=== PATIENT | male | born 1980 | race Caucasian/White ===

== ENCOUNTER 2017-04-16 06:10 | Day surgery (SDC) | payer OTHER ==
[~2017-04-16] VITALS: Ht 189.2 cm; Wt 93.2 kg
[2017-04-16 06:39] VITALS: BP 153/84; PULSE 77; RESP 20; TEMP 98; O2SAT 99
[2017-04-16] MEDS ORDERED: FLUT50SP EACH NARE (06:44)
[2017-04-16] MEDS ORDERED: CETI10 PO (06:44)
[2017-04-16] MEDS ORDERED: PANT40TA3 PO (06:44)
[2017-04-16] MEDS ORDERED: [UNRECOGNIZED DRUG - REMARK] IV (06:44)
[2017-04-16] MEDS ORDERED: CHLORHEXIDINE GLUCONATE 2 % 1 PACK (2 CLOTHS) TOPICAL SCH (07:00)
[2017-04-16] MEDS ORDERED: SODIUM CHLORIDE 0.9% 1000 ML IV SCH (07:00)
[2017-04-16] MEDS ORDERED: ceFAZolin 2 GM PREMIX 50 ML - implanted port/tunneled catheter insertion IV SCH (07:00)
[2017-04-16] MEDS ORDERED: POVIDONE IODINE 5% (ANTISEPSIS KIT) 4 APPLICATIONS EACH NARE SCH (07:00)
[2017-04-16] MEDS ORDERED: VANCOMYCIN 1000 MG/NS 250 ML - implanted port/tunneled catheter IV SCH ×2 (07:00)
[2017-04-16] MEDS ORDERED: MIDAZOLAM HCL 5 MG/5 ML VIAL ONE (08:16)
[2017-04-16 09:15] VITALS: BP 123/74; PULSE 74; RESP 17; TEMP 98.6; O2SAT 97
[2017-04-16 09:30] VITALS: BP 128/71; PULSE 76; RESP 16; O2SAT 98
[2017-04-16 10:00] VITALS: BP 123/67; PULSE 81; RESP 17; O2SAT 97
[2017-04-16 10:30] VITALS: BP 124/68; PULSE 79; RESP 18; O2SAT 98
--- NOTE | 2017-04-16 11:04 | PD.RAD ---
Post Procedure Progress Note Pre Procedure Diagnosis: (1) Colorectal cancer Post Procedure Diagnosis: (1) Colorectal cancer Procedure Date: Apr 16, 2017 Supervising Radiologist: Kenny Witt Proceduralist/Assist: Micheline Chaudhry RT(R)(CV) Estimated blood loss: 10 ml Anesthesia: Local, Conscious Sedation Plan of Activity Patient to Unit: ROPU Patient Condition: Good See PACS Report for procedural detail/treatment Central Venous Access Device Procedure 1 Right Internal Jugular Infusaport Placement single lumen Japanese: 8 Kenny Witt MD Apr 16, 2017 11:04
[2017-04-16] MEDS ORDERED: SODIUM CHLORIDE 0.9% FLUSH 10 ML FLUSH IVF PRN (11:15)
[2017-04-16 11:30] VITALS: BP 125/62; PULSE 70; RESP 17; O2SAT 98
--- NOTE | 2017-04-16 13:47 | RADRPT ---
EXAM DATE/TIME: 04/16/2017 08:05 [facility] COMPARISON: No previous studies available for comparison. INDICATIONS : Patient with a history of colon adenocarcinoma, needs chemotherapy. MEDICAL HISTORY : Colon cancer Anemia GERD Plantar fascitis Retinal tear SURGICAL HISTORY : Retinal laser treatment Colonoscopy Upper endoscopy ENCOUNTER: Initial ACUITY: 1 week PAIN SCORE: 0/10 FLUORO TIME: 0.7 minutes IMAGE SERIES: 1 SEDATION TIME: 25 minutes ACCESS: Right internal jugular vein SEDATION: 1.) 3.5 mg midazolam (Versed) IV 2.) 200 mcg fentanyl (Sublimaze) IV Prophylactic antibiotics were administered with appropriate pre-procedure timing. Vancomycin within 2 hours of procedure, Ancef (or alternative) within 1 hour of procedure. DEVICE: 1. 8 [place] single lumen Bard Power Port PROCEDURE : 1. Continuous pulse oximetry and EKG monitoring. 2. Intravenous conscious sedation. 3. Ultrasound guidance for venous access. 4. Fluoroscopic guided implantable central venous port placement. The patient was placed supine. The neck was prepped in sterile fashion. Full sterile technique was u sed, including cap, mask, sterile gloves and gown, and a large sterile sheet. Hand hygiene and 2% ch lorhexidine Betadine was utilized per protocol for cutaneous antisepsis with appropriate dry time for site. Sterile gel and sterile probe cover were utilized for ultrasound guidance. The skin and sub cutaneous tissues were infiltrated with local anesthetic solution. Under direct ultrasound guidance, central venous access was accomplished in the targeted vessel. The ultrasound images depicting access guidance were stored and saved to PACS for permanent record. A s ubcutaneous pocket was created using blunt dissection. The port was introduced to the pocket. The c atheter tubing was fed through a subcutaneous tunnel to the venotomy site. The catheter tubing was c ut to a suitable length and then was introduced through a valved Peel-Away sheath and positioned with catheter tubing tip at the cavo-atrial junction level. The pocket incision was closed with subcutic ular Vicryl suture. Steri-Strips were applied. The port was flushed and locked with heparin solutio n per protocol. Sterile dressing was applied to the site. The patient tolerated the procedure well. Conscious sedation was performed with the prescribed dosages and duration as above in the presence of an independent trained radiology nurse to assist in the monitoring of the patient. EKG and oximetry remained stable throughout the procedure. The patient tolerated the procedure well and there were no complications. The patient was sent to post anesthesia recovery in stable condition. CONCLUSION: Uncomplicated ultrasound and fluoroscopic guided implanted central venous port catheter placement as described in detail above. An 8 [place]an Power port was placed. Kenny Witt MD on April 16, 2017 at 13:44 Board Certified Radiologist. This report was verified electronically.
== END 2017-04-16 11:30 | disposition home or self-care (01) ==
LOC: HROP 06:10 → HRIP 06:24 → HROP 11:30
PROVIDERS: ATTEND Internal Medicine
DX: C18.9 Malignant neoplasm of colon, unspecified (principal); K21.9 Gastro-esophageal reflux disease without esophagitis; D64.9 Anemia, unspecified; M72.2 Plantar fascial fibromatosis
CPT/HCPCS: 36561; 76937; 77001; 99152; 99153; C1788; J0690; J1642; J2250; J3010; J3370; J7030; J7050

== ENCOUNTER 2017-07-17 12:29 | Observation (INO) | payer OTHER ==
[~2017-07-17 12:29] MED LIST: CETI10 PO; FLUT50SP EACH NARE; PANT40TA3 PO; [UNRECOGNIZED DRUG - REMARK] IV
[2017-07-17 15:46] VITALS: BP 112/72; PULSE 77; RESP 16; TEMP 98.6; O2SAT 98
[2017-07-17] MEDS ORDERED: MULT-65 PO (15:57)
[2017-07-17] MEDS ORDERED: OCTREOTIDE INJ 100 MCG/ML VIAL IV PUSH ONE (16:15)
[2017-07-17] MEDS ORDERED: ONDANSETRON HCL 4 MG/2 ML VIAL IV PUSH ONE (16:15)
[2017-07-17] MEDS ORDERED: ONDANSETRON HCL 4 MG/2 ML VIAL IV PUSH PRN (16:15)
[2017-07-17] MEDS ORDERED: LOPERAMIDE HCL 2 MG CAP PO PRN (16:30)
[2017-07-17] MEDS ORDERED: LORazepam 0.5 MG TAB PO PRN (16:45)
--- NOTE | 2017-07-17 17:08 | RADRPT ---
EXAM DATE/TIME: 07/17/2017 16:41 [facility] COMPARISON: No previous studies available for comparison. INDICATIONS : Diarrhea. MEDICAL HISTORY : None. SURGICAL HISTORY : Colon removal. ENCOUNTER: Initial ACUITY: 1 day PAIN SCORE: 0/10 LOCATION: Bilateral abdomen. FINDINGS: Supine view of the abdomen was performed. The abdominal bowel gas pattern is normal. No abnormal ma sses, calcifications, or organomegaly is seen. The visualized lower lungs are clear. The osseous str uctures are unremarkable. CONCLUSION: No dilated loops of small or large bowel. Moi Collazo MD on July 17, 2017 at 17:06 Board Certified Radiologist. This report was verified electronically.
[2017-07-17] MEDS: PANTOPRAZOLE SOD 40 MG DELAYED RELEASE TAB PO SCH (19:24)
[2017-07-17 20:08] VITALS: PULSE 79
[2017-07-17] MEDS: VANCOMYCIN 500 MG VIAL (FOR ORAL USE ONLY) PO SCH (21:12)
[2017-07-17 21:21] VITALS: BP 133/79; PULSE 79; RESP 18; TEMP 98.3; O2SAT 98
[2017-07-17] MEDS ORDERED: ACETAMINOPHEN 325 MG TAB PO PRN (22:30)
[2017-07-18] VITALS (7 sets, daily range): BP systolic 105–124; BP diastolic 60–74; PULSE 65–82; RESP 18; TEMP 97.9–98.4; O2SAT 68–99
[2017-07-18 05:02] LABS: AUTOMATED NEUTROPHIL # 3.5 TH/MM3 (1.8-7.7); BASOPHIL % 0.4 % (0.0-2.0); EOSINOPHIL # 0.7 TH/MM3 (0-0.4); EOSINOPHIL % 11.6 % (0.0-4.0); HEMATOCRIT 38.6 % (39.0-51.0); HEMOGLOBIN 13.2 GM/DL (13.0-17.0); LYMPH % 21.4 % (9.0-44.0); LYMPHOCYTE # 1.4 TH/MM3 (1.0-4.8); MEAN CELL VOLUME 93.5 FL (80.0-100.0); MEAN CORPUSCULAR HGB CONC 34.2 % (32.0-36.0); MONO % 11.1 % (0.0-8.0); MONOCYTE # 0.7 TH/MM3 (0-0.9); NEUT % 55.5 % (16.0-70.0); PLATELET COUNT 128 TH/MM3 (150-450); RED BLOOD COUNT 4.12 MIL/MM3 (4.50-5.90); RED CELL DISTRIBUTION WIDTH 23.6 % (11.6-17.2); WHITE BLOOD COUNT 6.4 TH/MM3 (4.0-11.0)
[2017-07-18 06:02] LABS: ALBUMIN 3.3 GM/DL (3.4-5.0); ALKALINE PHOSPHATASE 56 U/L (45-117); ALT (GPT) 33 U/L (12-78); AST (GOT) 40 U/L (15-37); BICARBONATE 23.1 MEQ/L (21.0-32.0); BLOOD UREA NITROGEN 17 MG/DL (7-18); CALCIUM 8.5 MG/DL (8.5-10.1); CHLORIDE 111 MEQ/L (98-107); CREATININE 0.94 MG/DL (0.60-1.30); GLOMERULAR FILTRATION RATE 89 ML/MIN (>89); GLUCOSE,RANDOM 101 MG/DL (74-106); SODIUM (NA) 141 MEQ/L (136-145); TOTAL BILIRUBIN ADULT 0.9 MG/DL (0.2-1.0); TOTAL PROTEIN 7.3 GM/DL (6.4-8.2)
--- NOTE | 2017-07-18 07:56 | HHI.DCPOC ---
Discharge Care Plan Goals to Promote Your Health * To prevent worsening of your condition and complications * To maintain your health at the optimal level Directions to Meet Your Goals Take your medications as prescribed Follow your dietary instruction Follow activity as directed Keep your appointments as scheduled Take your immunizations and boosters as scheduled If your symptoms worsen call your PCP, if no PCP go to Urgent Care Center or Emergency Room Smoking is Dangerous to Your Health. Avoid second hand smoke Call the 24-hour hour crisis hotline for domestic abuse at Jonah Luna MD Jul 18, 2017 07:56
--- NOTE | 2017-07-18 07:57 | HHI.DS ---
Discharge Summary Admission Date Jul 17, 2017 at 14:39 Discharge Date: Jul 18, 2017 Admitting Diagnosis Stage III Colon Cancer s/p resection getting adjuvant Xeloda and Oxaliplatin admitted with diarrhea/dehydration and hypotension also with CASH CASH resolved Symptomatically better VSS C.diff positive being discharged home with 2 weeks of oral Vancomycin f/u labs in 1 week Clinic appt in 2 weeks advised to call us if any exacerbation of symptoms, fever or any other issues CBC/BMP: 07/18/17 0446 07/18/17 0446 Significant Findings Laboratory Tests Test 07/17/17 18:00 07/18/17 04:46 Stool C. difficile Toxin (PCR) POSITIVE (NEGATIVE) Red Blood Count 4.12 MIL/MM3 (4.50-5.90) Hematocrit 38.6 % (39.0-51.0) Red Cell Distribution Width 23.6 % (11.6-17.2) Platelet Count 128 TH/MM3 (150-450) Monocytes (%) (Auto) 11.1 % (0.0-8.0) Eosinophils (%) (Auto) 11.6 % (0.0-4.0) Eosinophils # (Auto) 0.7 TH/MM3 (0-0.4) Albumin 3.3 GM/DL (3.4-5.0) Aspartate Amino Transf (AST/SGOT) 40 U/L (15-37) Chloride Level 111 MEQ/L (98-107) Jonah Luna MD Jul 18, 2017 07:57
[2017-07-18] MEDS ORDERED: SODIUM CHLORID 0.9% 500 ML INJ 500 ML IV ONE (08:00)
--- NOTE | 2017-07-18 08:04 | PD.ONC.PN ---
Subjective Subjective Remarks feels better today diarrhea subsiding continue oral vancomycin and IV hydration if feels better today, will d/c home Objective Data Date Time Temp Pulse Resp B/P (MAP) Pulse Ox O2 Delivery O2 Flow Rate FiO2 07/18/17 04:41 97.9 75 18 105/64 (78) 98 07/18/17 04:11 65 07/18/17 01:20 16 07/18/17 00:24 73 07/18/17 00:18 98.0 79 18 109/70 (83) 99 07/17/17 21:21 98.3 79 18 133/79 (97) 98 07/17/17 20:08 79 07/17/17 15:46 98.6 77 16 112/72 (85) 98 Result Diagram: 07/18/17 0446 07/18/17 0446 Laboratory Results Laboratory Tests Test 07/17/17 18:00 07/18/17 04:46 Stool C. difficile Toxin (PCR) POSITIVE Stl C. difficile Toxin Epiderm 027 PRESUMPTIVE NEGATIVE White Blood Count 6.4 TH/MM3 Red Blood Count 4.12 MIL/MM3 Hemoglobin 13.2 GM/DL Hematocrit 38.6 % Mean Corpuscular Volume 93.5 FL Mean Corpuscular Hemoglobin 32.0 PG Mean Corpuscular Hemoglobin Concent 34.2 % Red Cell Distribution Width 23.6 % Platelet Count 128 TH/MM3 Mean Platelet Volume 8.0 FL Neutrophils (%) (Auto) 55.5 % Lymphocytes (%) (Auto) 21.4 % Monocytes (%) (Auto) 11.1 % Eosinophils (%) (Auto) 11.6 % Basophils (%) (Auto) 0.4 % Neutrophils # (Auto) 3.5 TH/MM3 Lymphocytes # (Auto) 1.4 TH/MM3 Monocytes # (Auto) 0.7 TH/MM3 Eosinophils # (Auto) 0.7 TH/MM3 Basophils # (Auto) 0.0 TH/MM3 CBC Comment DIFF FINAL Differential Comment Blood Urea Nitrogen 17 MG/DL Creatinine 0.94 MG/DL Random Glucose 101 MG/DL Total Protein 7.3 GM/DL Albumin 3.3 GM/DL Calcium Level 8.5 MG/DL Alkaline Phosphatase 56 U/L Aspartate Amino Transf (AST/SGOT) 40 U/L Alanine Aminotransferase (ALT/SGPT) 33 U/L Total Bilirubin 0.9 MG/DL Sodium Level 141 MEQ/L Potassium Level 3.7 MEQ/L Chloride Level 111 MEQ/L Carbon Dioxide Level 23.1 MEQ/L Anion Gap 7 MEQ/L Estimat Glomerular Filtration Rate 89 ML/MIN Culture Results Microbiology Date/Time Source Procedure Growth Status 07/17/17 18:34 Blood Line Aerobic Blood Culture Pending Received 07/17/17 18:34 Blood Line Anaerobic Blood Culture Pending Received 07/17/17 17:25 Blood Line Aerobic Blood Culture Pending Received 07/17/17 17:25 Blood Line Anaerobic Blood Culture Pending Received Administered Medications Medications (Trade) Dose Ordered Sig/Renae Route PRN Reason Start Time Stop Time Status Last Admin Dose Admin Pantoprazole Sodium (Protonix) 40 mg DAILY PO 07/17/17 18:55 07/17/17 19:24 Vancomycin HCl (VANCOMYCIN for oral use only) 125 mg QID PO 07/17/17 21:00 07/17/17 21:12 Acetaminophen (Tylenol) 650 mg Q6HR PRN PO PAIN SCALE 1 TO 2 07/17/17 22:30 07/18/17 00:21 Objective Remarks GENERAL: nad SKIN: Warm and dry. HEAD: Normocephalic. EYES: No scleral icterus. No injection or drainage. NECK: Supple, trachea midline. No JVD or lymphadenopathy. LYMPHATIC: No adenopathy. CARDIOVASCULAR: Regular rate and rhythm without murmurs. RESPIRATORY: Breath sounds equal bilaterally. No accessory muscle use. GASTROINTESTINAL: Abdomen soft, non-tender, nondistended. EXTREMITIES: No cyanosis, or edema. MUSCULOSKELETAL: Adequate muscle tone. NEUROLOGICAL: No obvious focal deficit. Awake, alert, and oriented x3. PSYCHIATRIC: Appropriate mood and affect; insight and judgment normal. Assessment/Plan Problem List: (1) Hypotension ICD Codes: I95.9 - Hypotension, unspecified (2) Dehydration ICD Codes: E86.0 - Dehydration (3) C. difficile colitis ICD Codes: A04.72 - Enterocolitis due to Clostridium difficile, not specified as recurrent (4) Colorectal cancer ICD Codes: C19 - Malignant neoplasm of rectosigmoid junction Jonah Luna MD Jul 18, 2017 08:04
[2017-07-18] MEDS ORDERED: MULTIVITAMIN TAB PO SCH (09:00)
[2017-07-18] MEDS ORDERED: CETIRIZINE HCL 10 MG TAB PO SCH (09:00)
[2017-07-18] MEDS ORDERED: FLUTICASONE PROPIONATE 50 MCG/ACT 16 GM NASAL SPRAY NASAL SCH (09:00)
[2017-07-18] MEDS: VANCOMYCIN 500 MG VIAL (FOR ORAL USE ONLY) PO SCH ×3 (10:21→16:48)
[2017-07-18] MEDS: PANTOPRAZOLE SOD 40 MG DELAYED RELEASE TAB PO SCH (10:21)
[2017-07-18] MEDS ORDERED: SODIUM CHLOR 0.9% 1000 ML INJ 1,000 ML IV SCH ×2 (12:15→16:00)
--- NOTE | 2017-07-18 13:00 | MH ---
cc: SHEILA ARCHER DATE OF ADMISSION: 07/17/2017 DATE OF : 1980 ADMITTING DIAGNOSIS: Patient with a diagnosis of locally advanced colon adenocarcinoma status post resection and is currently receiving adjuvant chemotherapy presents with hypotension, dehydration and diarrhea and presyncopal event. HISTORY OF PRESENT ILLNESS Mr. Augustin is a 37-year-old male who has a diagnosis of locally advanced colon adenocarcinoma. This is stage III colon cancer. He has undergone laparoscopic system. Colectomy with ileorectostomy and with flexible sigmoidoscopy and laparoscopic mesenteric excisional biopsy. The surgery was completed at [facility] in February 2017. He had presented with GI obstruction and bleeding. A cecal mass was discovered on an endoscopy and biopsy confirmed well differentiated colon adenocarcinoma. The patient is currently being treated with Xeloda and Oxaliplatin. He developed toxicity from the Xeloda, including hand and foot syndrome and oral mucositis and dose reduction to the Xeloda regimen, the regimen was done. He also developed low grade neuropathy and there was also adjusted made to his Oxaliplatin regimen. He is now being admitted to the hospital with acute onset of diarrhea which is profuse and liquid in nature. This developed over the last 48 hours. He presented to the oncology clinic and was very weak and lightheaded. He was found to have very low systolic blood pressure in the low 40s to 60s. He was immediately given two fluid boluses in the clinic. Labs were drawn which showed acute renal failure with a creatinine in range of 1.9. He is he is now being admitted the hospital for further management. He has had poor oral intake. He denies any fevers or chills. Denies any abdominal cramping. He states that he generally he has been very careful in terms of what he eats since his surgery. He has not been eating food items with a very high fiber content, he states that he recently ate a lot of Oatmeal and thinking this is what triggered his diarrhea. REVIEW OF SYSTEMS A comprehensive review of systems was completed which is negative except as described in the HPI. PAST MEDICAL HISTORY 1. Stage III colon adenocarcinoma 2. anemia of iron deficiency 3. gastroesophageal reflux disease 4. Plantar fasciitis. PAST SURGICAL HISTORY 1. Total abdominal colectomy with ileorectostomy with flexible sigmoidoscopy and rectus laparoscopic mesenteric excisional biopsy in 2017. 2. Retinal laser treatment 3. Colonoscopy in 2017 4. Upper endoscopy in 2017. ALLERGIES NO KNOWN DRUG ALLERGIES MEDICATIONS home medications include 1. capecitabine 500 mg twice a day. <<5:10>> 100 mg 2 tablets twice a day 1 week on 1 week off. 2. Multivitamins. 3. Pantoprazole 4. Zyrtec. ALLERGIES NO KNOWN DRUG ALLERGIES. FAMILY HISTORY Was reviewed and noncontributory to this admission. SOCIAL HISTORY He is . He works as a before school babysitter, he is a nonsmoker, he does not drink alcohol, no illicit drug use. VITAL SIGNS: Blood pressure is 109/70, pulse is in the 70s, temperature is 98, O2 sats are 99% on room air. IN GENERAL: Acutely ill patient in no apparent distress. HEAD, EYES, EARS, NOSE, AND THROAT: Pupils are equal, round, react to light. EOMI. No oral thrush. No oral lesions. NECK: The neck is supple. No JVD, no bruits. No lymphadenopathy. CHEST: Chest is clear to auscultation bilaterally. CARDIOVASCULAR SYSTEM: Cardiac, He is tachycardiac in the 90s to 100s. However, after receiving fluid boluses the heart is now in the high 70s to low 80s. ABDOMEN: The abdomen is soft, nontender, hyperactive bowel sounds. EXTREMITIES: Without edema, erythema or cyanosis. SKIN: t.i.d. no bruises. Neuro no focal deficits. Psychiatric mood and affect is appropriate. LABORATORY DATA WBCs 11.7, hemoglobin is 4.75 and his platelet count is 136. Serum chemistries show sodium 138, potassium 2.5, chloride 105 gap is 13 reveal BUN is 18, creatinine is 1.94, total bilirubin is 1.4 at the AST 48, ALT 38, alk phos 69, total protein is nine. On imaging is pending. His ASSESSMENT/PLAN This is a 37-year-old male who has a diagnosis of stage III colon adenocarcinoma who is undergone surgery in February 2017. He is currently on receiving adjuvant chemotherapy consisting of to liver is a low lungs presents to the emergency room presents to the hospital with diarrhea, dehydration and low blood pressure and presyncopal events. 1. Severe diarrhea this could gastroenteritis versus toxicity from chemotherapy. He was having multiple bowel movements throughout the day. We will obtain a C-Difficile. I will start aggressive IV hydration. He has tried both Lomotil and Imodium and these have not worked. We will give him an injection of octreotide we will wait for the C-Difficile results to come back. We may have to hold further antidiarrheals is a CT that C diff infection. I do not believe heaving that he has any sort of partial obstruction with we will obtain an abdominal x-ray. He is passing gas and having planning and has not had any abdominal pain. 2. Dehydration and hypotension secondary to diarrhea. We will hydrate him will start antibiotics. Will closely monitor his blood pressure. 3. Acute renal failure likely prerenal being on the to dehydration and hopefully this will improve with hydration as stated above. 4. Mild leukocytosis? Due to 5. Infection number he 6. Who fluid, electrolytes and nutrition additional IV fluid boluses as needed maintenance IV fluids at 75 mL an hour he will closely monitor his electrolytes and replace as needed 7. Stage III colon adenocarcinoma. Further treatment will be completed and the patient was zero completed outpatient fold continue to volts or one and the patient. 8. DVT prophylaxis Lovenox 40 mg Subcu daily. 9. We will monitor this patient over night and depending upon how he does we may be able to discharge him over the next 24 hours. MD NATHALIE Navarro/[place] /8:04 AM /9:26 AM
[2017-07-18] MEDS ORDERED: SODIUM CHLORIDE 0.9% FLUSH 10 ML FLUSH IV FLUSH PRN (17:00)
== END 2017-07-18 19:25 | disposition home or self-care (01) ==
LOC: HCIN 14:39
PROVIDERS: ADMIT Internal Medicine; ATTEND Internal Medicine
DX: A04.72 Enterocolitis due to Clostridium difficile, not specified as recurrent (principal); R19.7 Diarrhea, unspecified; E86.0 Dehydration; I95.9 Hypotension, unspecified; N17.9 Acute kidney failure, unspecified; C19 Malignant neoplasm of rectosigmoid junction; R55 Syncope and collapse
CPT/HCPCS: 74000; 80053; 85025; 87040; 87493; 96361; 96374; 96375; G0378; J1642; J2354; J2405; J7030; J7040